=== PATIENT | female | born 1950 | race Caucasian/White ===

== ENCOUNTER 2018-10-09 09:20 | Inpatient (IN) | payer BC ==
[~2018-10-09] VITALS: Ht 152.4 cm; Wt 87.5 kg
[2018-10-09 10:22] LABS: Basophils # (auto) 0 uL; Basophils % (auto) 0.5 % (0.0-2.0); Eosinophils # (auto) 0.1 uL; Eosinophils % (auto) 1.8 % (0.0-7.0); Hematocrit 45.3 % (36.0-46.0); Lymphocytes # (auto) 1.3 uL; Lymphocytes % (auto) 16.9 % (10.0-50.0); Mean Corpuscular Hemoglobin 29.3 pg (28.0-32.0); Mean Corpuscular Volume 88.9 fL (80.0-100.0); Monocytes # (auto) 0.7 uL; Neutrophils # (auto) 5.5 uL; Neutrophils % (auto) 71.8 % (37.0-80.0); Nucleated Red Blood Cells % 0.1 %; Platelet Count (auto) 248 10^3/uL (140-450); Red Cell Distribution Width 13.7 % (11.8-14.3); White Blood Cell 7.7 10^3/uL (4.4-10.8)
[2018-10-09 10:42] LABS: Albumin 3.7 g/dL (3.4-5.0); Anion Gap 15 (5-15); Blood Urea Nitrogen 22 mg/dL (7-18); Calcium 9.6 mg/dL (8.5-10.1); Carbon Dioxide 16 mmol/L (21-32); Chloride 108 mmol/L (98-107); Glucose 97 mg/dL (74-106); Potassium 3.9 mmol/L (3.5-5.1); Sodium 139 mmol/L (136-145)
[2018-10-09 10:49] LABS: Alanine Aminotransferase 12 U/L (13-56); Alkaline Phosphatase 87 U/L (45-117); Aspartate Aminotransferase 15 U/L (15-37); BUN/Creatinine Ratio 13.3; Bilirubin, Total 0.6 mg/dL (0.2-1.0); GFR African American 40 mL/min; GFR Non-African American 33 mL/min; Total Protein 7.7 g/dL (6.4-8.2)
[2018-10-09] MEDS ORDERED: NITROGLYCERIN 0.4 MG SL TAB SL PRN (13:30)
[2018-10-09] MEDS ORDERED: MORPHINE SULF INJ 2 MG/ML SYRINGE 1ML IV PRN (13:30)
[2018-10-09] MEDS ORDERED: cefTRIAXone 1GM/50ML D5W 50 ML IV ONE (13:45)
[2018-10-09] MEDS: SODIUM CHLORIDE 0.9% 1,000 ML IV SCH (14:15)
[2018-10-09 14:39] LABS: Urine Bacteria FEW /hpf (None Seen); Urine Blood 1+ /uL (Negative); Urine Mucus FEW (None Seen); Urine Specific Gravity 1.029 (1.001-1.035); Urine WBC 14 /hpf (0 - 5)
[2018-10-09 14:53] LABS: Amphetamine Screen, Urine NEGATIVE (NEGATIVE); Barbiturate Scree,Urine NEGATIVE (NEGATIVE); Benzodiazephine Screen, Urine NEGATIVE (NEGATIVE); Cannabinoid Screen, Urine POSITIVE (NEGATIVE); Cocaine Screen, Urine NEGATIVE (NEGATIVE); Opiate Scree,Urine NEGATIVE (NEGATIVE); Phencyclidine Screen, Urine NEGATIVE (NEGATIVE)
[2018-10-09] MEDS ORDERED: SIMV-13 PO (17:03)
[2018-10-09] MEDS ORDERED: TRAZ50TA2 PO (17:10)
[2018-10-09] MEDS ORDERED: CHOL100055 PO (17:10)
[2018-10-09] MEDS ORDERED: LEVO100T8 PO (17:10)
[2018-10-09] MEDS ORDERED: SERT50TA PO (17:10)
[2018-10-09 19:49] LABS: Anion Gap 12 (5-15); BUN/Creatinine Ratio 17.2; Blood Urea Nitrogen 21 mg/dL (7-18); Calcium 9.1 mg/dL (8.5-10.1); Carbon Dioxide 19 mmol/L (21-32); Chloride 109 mmol/L (98-107); GFR African American 56 mL/min; GFR Non-African American 46 mL/min; Glucose 92 mg/dL (74-106); Potassium 3.6 mmol/L (3.5-5.1); Sodium 140 mmol/L (136-145)
--- NOTE | 2018-10-09 21:16 | NUR ---
Telemetry admit from ER MARYJOKAMILA admitted to Telemetry unit after SBAR received. Patient oriented to Myron Peña, primary RN, unit, room, bed, and unit policies regarding patient care and visiting hours. Patient is alert and oriented x 2. She states that she does not know why she was sent to the hospital. Has no complaints at the moment. Patient now on continuous telemetry monitoring, tele box # 73 and telemetry reading on arrival to unit is SR 55. Patient has been weighed by bedscale and encouraged to call if they need something. All questions and concerns addressed, patient verbalized understanding. Sitter is present in room.
[2018-10-09 21:20] VITALS: BP 139/72
[2018-10-09 23:10] LABS: Protein, Urine 56.2 mg/dL (0.0-11.9)
--- NOTE | 2018-10-09 23:33 | NUR ---
ADMISSION Admission information obtained from madi Payne [phone]
[2018-10-10 00:16] VITALS: BP 139/72
[2018-10-10] MEDS ORDERED: TRAZ50TA2 PO (00:36)
[2018-10-10] MEDS ORDERED: SIMV-13 PO (00:36)
[2018-10-10] MEDS ORDERED: MULTCAP45 PO (00:36)
[2018-10-10] MEDS ORDERED: CEPH500C PO (00:36)
[2018-10-10] MEDS ORDERED: CHOL20007 PO (00:36)
[2018-10-10] MEDS ORDERED: SPECTAB8 PO (00:36)
[2018-10-10] MEDS ORDERED: BIOT10CA PO (00:36)
[2018-10-10] MEDS: SODIUM CHLORIDE 0.9% 1,000 ML IV SCH ×2 (03:01→17:54)
[2018-10-10 05:00] VITALS: BP 147/73
[2018-10-10 06:07] LABS: Basophils # (auto) 0 uL; Basophils % (auto) 0.5 % (0.0-2.0); Eosinophils # (auto) 0.3 uL; Eosinophils % (auto) 4.5 % (0.0-7.0); Hemoglobin 14.5 g/dL (12.2-16.2); Lymphocytes # (auto) 1.5 uL; Lymphocytes % (auto) 22.2 % (10.0-50.0); Mean Corpuscular Hgb Conc. 32.9 g/dL (32.0-36.0); Mean Corpuscular Volume 88.1 fL (80.0-100.0); Monocytes # (auto) 0.7 uL; Monocytes % (auto) 9.9 % (0.0-12.0); Neutrophils # (auto) 4.2 uL; Neutrophils % (auto) 62.9 % (37.0-80.0); Nucleated Red Blood Cells % 0.1 %; Platelet Count (auto) 218 10^3/uL (140-450); Red Blood Cells 4.99 10^6/uL (4.0-5.20); Red Cell Distribution Width 13.8 % (11.8-14.3); White Blood Cell 6.7 10^3/uL (4.4-10.8)
[2018-10-10 06:20] LABS: Calcium 8.8 mg/dL (8.5-10.1); Potassium 3.7 mmol/L (3.5-5.1)
[2018-10-10 08:00] VITALS: BP 119/69
[2018-10-10 08:30] VITALS: BP 119/69
[2018-10-10] MEDS: cefTRIAXone 1GM/50ML D5W 50 ML IV SCH (09:17)
[2018-10-10] MEDS ORDERED: LEVOTHYROXINE SODIUM 100 MCG TAB PO ONE (11:15)
--- NOTE | 2018-10-10 12:18 | NUR ---
Estimated needs based on AJBW 56.8 kg-geriatric needs/wt maintenance factors 8928-5864 kcal (25-27 kcal/kg) 57-68 g protein (1.0-1.2 g/kg) Addendum: 10/10/18 at [address] Amended: Links added.
[2018-10-10 15:57] VITALS: BP 141/89
--- NOTE | 2018-10-10 19:20 | NUR ---
Opening Shift Note Assumed care of patient. Patient was asleep upon entering the room but arousable. Sitter present at bedside. No S/S of distress/SOB or pain. Instructed on POC and to call for assist PRN, will continue to monitor for changes Q1hr and PRN.
[2018-10-10 22:00] VITALS: BP 162/67
[2018-10-11 04:14] VITALS: BP 156/63
--- NOTE | 2018-10-11 04:58 | NUR ---
HOSPITALIST PAGED Patient reports having severe lower back pain. She states that her pain is 8/10. Hospitalist has been paged for PRN pain medication.
[2018-10-11] MEDS: LEVOTHYROXINE SODIUM 100 MCG TAB PO SCH (06:20)
[2018-10-11 06:35] LABS: Basophils # (auto) 0 uL; Basophils % (auto) 0.6 % (0.0-2.0); Eosinophils # (auto) 0.3 uL; Eosinophils % (auto) 5.4 % (0.0-7.0); Hematocrit 42.9 % (36.0-46.0); Hemoglobin 14.3 g/dL (12.2-16.2); Lymphocytes # (auto) 1.2 uL; Lymphocytes % (auto) 20.9 % (10.0-50.0); Mean Corpuscular Hemoglobin 29.4 pg (28.0-32.0); Mean Corpuscular Hgb Conc. 33.3 g/dL (32.0-36.0); Mean Corpuscular Volume 88.1 fL (80.0-100.0); Monocytes # (auto) 0.5 uL; Monocytes % (auto) 9.4 % (0.0-12.0); Neutrophils # (auto) 3.7 uL; Neutrophils % (auto) 63.7 % (37.0-80.0); Nucleated Red Blood Cells % 0.1 %; Platelet Count (auto) 197 10^3/uL (140-450); Red Blood Cells 4.87 10^6/uL (4.0-5.20); Red Cell Distribution Width 13.7 % (11.8-14.3); White Blood Cell 5.9 10^3/uL (4.4-10.8)
--- NOTE | 2018-10-11 06:45 | NUR ---
HOSPITALIST PAGE RETURNED Discussed patient's pain with Hospitalist Dillon. Order for [place] 5 Q4HR has been read back and verified.
[2018-10-11 06:53] LABS: BUN/Creatinine Ratio 16.9; Calcium 8.4 mg/dL (8.5-10.1); Potassium 3.5 mmol/L (3.5-5.1)
--- NOTE | 2018-10-11 07:15 | NUR ---
CLOSING NOTE Care has been endorsed to day shift RN.
[2018-10-11] MEDS: cefTRIAXone 1GM/50ML D5W 50 ML IV SCH (09:49)
[2018-10-11] MEDS: HYDROcodone-ACET 5/325MG TAB PO PRN ×2 (09:50→20:48)
[2018-10-11] MEDS ORDERED: LORazepam 0.5 MG TAB PO ONE (12:00)
[2018-10-11] MEDS: SODIUM CHLORIDE 0.9% 1,000 ML IV SCH (12:17)
[2018-10-11 18:00] VITALS: BP 147/73
[2018-10-11] MEDS ORDERED: LORazepam 2MG/ML-1ML VIAL IV PRN (19:45)
[2018-10-11] MEDS: LORazepam 2MG/ML-1ML VIAL IV PRN (20:48)
[2018-10-11] MEDS ORDERED: SODIUM BICARBONATE 650 MG TAB PO SCH (22:15)
[2018-10-12] MEDS: SODIUM CHLORIDE 0.9% 1,000 ML IV SCH ×2 (01:20→16:16)
[2018-10-12] MEDS: LORazepam 2MG/ML-1ML VIAL IV PRN ×2 (03:13→22:49)
[2018-10-12 05:40] VITALS: BP 145/77
[2018-10-12] MEDS: LEVOTHYROXINE SODIUM 100 MCG TAB PO SCH (06:15)
--- NOTE | 2018-10-12 06:16 | NUR ---
Patient took Levothyroxine medication and spat it out. Medication wasted. Sitter at bedside, will continue to monitor.
[2018-10-12 06:23] LABS: Calcium 8.7 mg/dL (8.5-10.1); Potassium 3.6 mmol/L (3.5-5.1)
[2018-10-12 06:27] LABS: BUN/Creatinine Ratio 11.9
[2018-10-12 09:00] VITALS: BP 171/79
[2018-10-12 10:39] VITALS: BP 130/71
[2018-10-12] MEDS: cefTRIAXone 1GM/50ML D5W 50 ML IV SCH (10:57)
--- NOTE | 2018-10-12 12:30 | NUR ---
EEG COMPLETED AT BEDSIDE. CAMILA PRADO.
[2018-10-12 13:00] VITALS: BP 170/78
[2018-10-12] MEDS ORDERED: THIAMINE 100mg/ml INJ (200mg/2ml VIAL) IV ONE (13:15)
--- NOTE | 2018-10-12 15:15 | NUR ---
UNABLE TO COMPLETE THE MRI SPOKE WITH THE RELAY SHOP SUPERVISOR. AFTER MULTIPLE ATTEMPTS TO SCAN THE PATIENT THEY HAD TO ABORT THE MRI OF THE HEAD. THE PATIENT WAS CALM AND SLEEP BEFORE EACH ATTEMPT TO SCAN, BUT THEN THE PATIENT WOULD BEGIN SCREAMING AND FLAILING WHILE IN THE MRI TUBE. THE LAST ATTEMPT TO SCAN THE PATIENT BEGAN TO VOMIT AND PRESENTING AN ASPIRATION RISK DUE TO THE HEAD CAGE NEEDED FOR THE SCAN. THE TECH RECOMMENDS THAT THE PATIENT HAS REPEAT CT SCANS, WHICH ARE SHORTER IN DURATION VERSUS THE MRI OF THE HEAD. WILL NOTIFY DR. GOODWIN AND CONTINUE TO MONITOR. OF NOW, THE PATIENT IS RESTING IN HER ROOM AND THERE ARE NO SIGNS OR DISTRESS. WILL CONTINUE TO MONITOR.
[2018-10-12 17:00] VITALS: BP 106/71
--- NOTE | 2018-10-12 18:25 | NUR ---
assessment Patient is a 68 year old female who just cries and does not answer my questions. Patients friend is at bedside and informed me patient lives with her friend Kerry for the past 2 years. Patient has been independent prior to admission. Patients current mental status is new onset. I will try to find patients brother who is in [place] and also call patients friend Kerry. Addendum: 10/12/18 at 1828 by Stephani FRANCO Amended: Links added.
[2018-10-12] MEDS: Ensure Enlive Strawberry 8oz Bottle PO SCH (18:37)
--- NOTE | 2018-10-12 19:30 | NUR ---
Opening Shift Note Assumed care of patient, awake and disoriented; oriented x1 to self. No S/S of distress/SOB or pain. Sitter in room. This RN will continue to monitor for changes Q1hr and PRN.
[2018-10-12 20:29] VITALS: BP 140/71
--- NOTE | 2018-10-12 22:49 | NUR ---
Ativan 0.5mg IVP given as pt aggitated; pulling at hospital gown and whining/fretting. Easily distracted and soothed but for short time only, so ativan given.
[2018-10-13 05:00] VITALS: BP 146/73
[2018-10-13] MEDS: LEVOTHYROXINE SODIUM 100 MCG TAB PO SCH (06:00)
--- NOTE | 2018-10-13 06:01 | NUR ---
Pt spat out synthroid, but swallowed small bite of apple sauce x2.
[2018-10-13] MEDS: SODIUM CHLORIDE 0.9% 1,000 ML IV SCH ×2 (06:31→17:41)
[2018-10-13] MEDS: Ensure Enlive Strawberry 8oz Bottle PO SCH ×3 (08:00→17:41)
[2018-10-13 09:00] VITALS: BP_SYST 118; BP_SYST 134; BP_DIAS 66; BP_DIAS 89
[2018-10-13] MEDS: THIAMINE 100mg/ml INJ (200mg/2ml VIAL) IV SCH (09:54)
[2018-10-13] MEDS: cefTRIAXone 1GM/50ML D5W 50 ML IV SCH (09:54)
[2018-10-13] MEDS: LORazepam 2MG/ML-1ML VIAL IV PRN (09:55)
[2018-10-13] MEDS ORDERED: HALOPERIDOL LACTATE 5 MG/ML INJ VIAL IM ONE (12:30)
[2018-10-13 13:00] VITALS: BP 120/60
--- NOTE | 2018-10-13 14:03 | NUR ---
Per patients nursebrent P.T. for today Addendum: 10/13/18 at 1403 by Afia Bojorquez PT Amended: Links added.
--- NOTE | 2018-10-13 14:19 | NUR ---
1 TIME DOSE OF HALDOL THE PHYSICIAN, DR. CONLEY, ORDERED A ONE TIME DOSE OF HALDOL 5MG IM. THE PATIENT DOES NOT HAVE THE ABILITY TO SWALLOW PILLS AND MUST RECEIVE THE MEDICATION THROUGH ANOTHER ROUTE. SPOKE WITH THE PHYSICIAN REGARDING THE NEED FOR A PRN BECAUSE A ONE TIME DOSE IS CONSIDERED A RESTRAINT. THE PHYSICIAN STATED THAT THE MEDICATION IS NOT CONSIDERED A RESTRAINT BECAUSE OF THE ROUTE OF ADMINISTRATION. THE MEDICATION IS BEING USED NOT TO RESTRAIN, BUT BECAUSE SHE CANNOT SWALLOW HER PILLS. WILL CARRYOUT AND CONTINUE TO MONITOR.
--- NOTE | 2018-10-13 19:35 | NUR ---
Opening Shift Note Received report from day shift RN. Assumed care of patient. Patient laying in bed A&O x1. Patient orientated to self. Patient only responds with simple yes or no answers when being asked questions. No S/S of distress/SOB noted and patient denies pain at this time. Patient becomes easily upset when being touched for assessment. Reassured and comforted patient. Patient pulled off tele monitor but was educated on the importance and need of tele monitor. Patient stated understanding and agreed to leave monitors on. Sitter at bedside for safety. Bed in lowest position, locked, with side rails up x2. Call light left within reach. Will continue to monitor for changes Q1hr and PRN
[2018-10-13 21:30] VITALS: BP 152/91
[2018-10-14 05:19] VITALS: BP 130/54
[2018-10-14] MEDS: SODIUM CHLORIDE 0.9% 1,000 ML IV SCH ×2 (06:26→21:34)
[2018-10-14] MEDS: LEVOTHYROXINE SODIUM 100 MCG TAB PO SCH (06:26)
[2018-10-14] MEDS: Ensure Enlive Strawberry 8oz Bottle PO SCH ×3 (08:00→18:00)
[2018-10-14 08:33] VITALS: BP 123/79
[2018-10-14] MEDS: cefTRIAXone 1GM/50ML D5W 50 ML IV SCH (09:19)
[2018-10-14] MEDS: risperiDONE 1 MG TAB PO SCH (10:00)
[2018-10-14] MEDS: THIAMINE 100mg/ml INJ (200mg/2ml VIAL) IV SCH (10:42)
[2018-10-14 12:53] VITALS: BP 138/68
[2018-10-14 12:55] VITALS: BP 124/59
[2018-10-14 17:01] VITALS: BP 127/66
[2018-10-14 22:10] VITALS: BP 125/76
[2018-10-15 05:07] VITALS: BP 130/70
[2018-10-15] MEDS: LEVOTHYROXINE SODIUM 100 MCG TAB PO SCH (06:54)
[2018-10-15 08:00] VITALS: BP 124/75
[2018-10-15 08:33] VITALS: BP 124/75
[2018-10-15] MEDS: cefTRIAXone 1GM/50ML D5W 50 ML IV SCH (09:00)
[2018-10-15] MEDS: Ensure Enlive Strawberry 8oz Bottle PO SCH ×3 (09:00→17:47)
--- NOTE | 2018-10-15 09:44 | NUR ---
PT PT PERFORMED PASSIVE RANGE MOTION EXERCISES, WHICH PATIENT TOLERATED WITHOUT CRYING. WILL CONTINUE TO MONITOR.
[2018-10-15] MEDS: risperiDONE 1 MG TAB PO SCH (10:00)
[2018-10-15] MEDS: SODIUM CHLORIDE 0.9% 1,000 ML IV SCH ×2 (12:40→23:08)
[2018-10-15] MEDS: THIAMINE 100mg/ml INJ (200mg/2ml VIAL) IV SCH (12:40)
[2018-10-15 13:00] VITALS: BP 140/77
[2018-10-15 17:00] VITALS: BP 154/81
--- NOTE | 2018-10-15 19:30 | NUR ---
Opening Shift Note Assumed care of patient, sleeping soundly with linens pulled up under chin. No S/S of distress/SOB or pain. Sitter in room. This RN will continue to monitor for changes Q1hr and PRN.
[2018-10-15 22:00] VITALS: BP 168/81
[2018-10-15] MEDS: CIPROFLOXACIN HYDROCHLORIDE 250 MG TAB PO SCH (22:00)
--- NOTE | 2018-10-15 22:45 | NUR ---
This RN attempted to give pt crushed abx in apple sauce after getting response from pt and pt stating "yes" to question if she would like apple sauce. Pt began whimpering before apple sauce given. This RN gave small tsp of apple sauce with small amount of crushed med. Pt, same as last week, took it into her mouth then resumed whimpering/crying and holding mouth partially open. She gagged sl x3 then swallowed. No further attempts made to keep pt from aspirating.
--- NOTE | 2018-10-15 23:25 | NUR ---
Dr. Blanco here at pt's bedside; asked if cause for ALOC had yet been determined. Informed MD that woman pt lives with stated pt has vaped and they found used cartridges. Dr. Blanco stated to tell Kerry, the house furnace mechanic, to bring in the cartridges and to get the number for the lawn service worker from ER to get the cartridges tested for possible contaminants/chemicals other than the marijuana/cannabis.
[2018-10-16 05:00] VITALS: BP 146/77
[2018-10-16] MEDS: LEVOTHYROXINE SODIUM 100 MCG TAB PO SCH (06:51)
[2018-10-16 07:47] LABS: Basophils # (auto) 0 uL; Basophils % (auto) 0.4 % (0.0-2.0); Eosinophils # (auto) 0.2 uL; Hematocrit 48.6 % (36.0-46.0); Hemoglobin 16.5 g/dL (12.2-16.2); Lymphocytes % (auto) 13.4 % (10.0-50.0); Mean Corpuscular Hemoglobin 29.5 pg (28.0-32.0); Mean Corpuscular Volume 86.9 fL (80.0-100.0); Monocytes # (auto) 0.6 uL; Monocytes % (auto) 8.4 % (0.0-12.0); Neutrophils # (auto) 5.4 uL; Neutrophils % (auto) 74.8 % (37.0-80.0); Nucleated Red Blood Cells % 0.1 %; Platelet Count (auto) 233 10^3/uL (140-450); Red Blood Cells 5.59 10^6/uL (4.0-5.20); Red Cell Distribution Width 13.5 % (11.8-14.3); White Blood Cell 7.2 10^3/uL (4.4-10.8)
[2018-10-16 07:59] LABS: BUN/Creatinine Ratio 12.2; Calcium 9.1 mg/dL (8.5-10.1); Potassium 3.6 mmol/L (3.5-5.1)
[2018-10-16 08:02] LABS: Bilirubin, Total 0.6 mg/dL (0.2-1.0); Total Protein 6.7 g/dL (6.4-8.2)
[2018-10-16 09:00] VITALS: BP 149/86
--- NOTE | 2018-10-16 10:43 | NUR ---
Pt walked 20 ft with physical therapy. LITHARGE SUPERVISOR reports pt had large soft brown bm and was given a bed bath with full linen change.
[2018-10-16] MEDS: Ensure Enlive Strawberry 8oz Bottle PO SCH ×2 (11:03→15:25)
[2018-10-16] MEDS: risperiDONE 1 MG TAB PO SCH (11:04)
[2018-10-16] MEDS: THIAMINE 100mg/ml INJ (200mg/2ml VIAL) IV SCH (11:04)
[2018-10-16] MEDS: CIPROFLOXACIN HYDROCHLORIDE 250 MG TAB PO SCH ×2 (11:04→23:03)
--- NOTE | 2018-10-16 11:13 | NUR ---
SPOKE WITH LYN GARCIA AND REQUESTED SHE BRING IN CARTRIDGES THAT THE PATIENT HAS MARIJUANA IN PER DR ZAPIEN REQUEST. LYN REPORTS SHE WILL BRING THEM IN THIS AFTER NOON.
[2018-10-16 12:54] VITALS: BP 116/79
--- NOTE | 2018-10-16 16:23 | NUR ---
re-assessment I spoke with patients roommate Kerry [phone]. Per Kerry patient has lived with her for the past 2 years. Per Kerry patient never wanted to change her insurance to local because she did not want to change PCP. Patients PCP is Dr Eleonora Carranza at [facility]. Per Kerry she didn't know patient was smoking THC until her admission. Kerry gave me patients next of kin Joanne Fitzpatrick sister [phone]. Per Joanne patient has been smoking marijuana since she was in her 50's. No other drug or ETOH addictions. I informed Joanne patient has a consult for SNF placement. Joanne agrees to SNF. I informed Joanne the placement may be in [place] where her insurance coverage is at. Per Joanne she agrees to where ever the insurance is contracted. Joanne verbalized understanding and agreed to discharge plan to SNF> Addendum: 10/16/18 at 1642 by Stephani FRANCO Amended: Links added.
[2018-10-16 17:00] VITALS: BP 118/76
--- NOTE | 2018-10-16 19:20 | NUR ---
Opening Shift Note Assumed care of patient, resting quietly, eyes closed. No S/S of distress/SOB or pain. Sitter in room. This RN will continue to monitor for changes Q1hr and PRN. Bed in low position. HOB in semi-Oliver's position. Call light within pt's reach.
[2018-10-16 21:44] VITALS: BP 108/67
[2018-10-17 05:54] VITALS: BP 105/75
[2018-10-17] MEDS: LEVOTHYROXINE SODIUM 100 MCG TAB PO SCH (08:04)
[2018-10-17 08:40] VITALS: BP 128/60
[2018-10-17] MEDS: risperiDONE 1 MG TAB PO SCH (10:00)
[2018-10-17] MEDS: THIAMINE 100mg/ml INJ (200mg/2ml VIAL) IV SCH (10:00)
[2018-10-17] MEDS: Ensure Enlive Strawberry 8oz Bottle PO SCH ×3 (12:00→18:50)
[2018-10-17 12:45] VITALS: BP 124/78
--- NOTE | 2018-10-17 14:26 | NUR ---
Nutrition Follow-up Notes Wt.: 86.5 kg Pt was sleeping not very alert with no family by beside but TALENT MANAGEMENT SPECIALIST. per TALENT MANAGEMENT SPECIALIST pt is not eating well and has poor PO as she is sleepy. per records pt with enceph. pt is currently on 2 gm na diet with ensure Enlive 1 carton tid with inadequate PO of < 25% x 4 per RN doc Estimated needs based on AJBW 56.8 kg-geriatric needs/wt maintenance factors: 6873-8369 kcal (25-27 kcal/kg), 57-68 g protein (1.0-1.2 g/kg) Labs: ALB 3.0 L. rest lab wnl for today Skin: Stef scale 19, low risk skin intact per RN doc GI: Pt had 1 BM 9/3 per air cargo specialist supervisor. PES: Altered nutrition related lab values r/t acute/chronic medical condition aeb elev BUN A1C, hypercapnia, hyperglycemia, Obesity class II r/t current chronic medical condition aeb pt. sedentary and measured BMI 39.1 kg/m2. Will continue to monitor PO intake, skin status, pertinent labs and weight trend. F/u in 2-3 days. Rec.: 1.) 1) Continue 2 gm Na diet ([id number]) as tolerated. 2) Consider alternate nutrition support if tp continues to have poor PO. If EN is choice of route consider Jevity 1.2 @ 55 ml.hr per MD approval. 3) continue assistance with meals. 4) continue current plan of care
[2018-10-17 16:00] VITALS: BP 118/75
--- NOTE | 2018-10-17 16:03 | NUR ---
I spoke with Dr. Velasquez regarding the plan of care for this patient-I let him know that the medical insurance coding specialist from [facility] may be calling him to discuss the plan of care. I also called [facility] Salon Receptionist Taya [phone] and left her a message asking to have her director of extension work Dr. Velasquez to discuss the plan of care.
--- NOTE | 2018-10-17 16:30 | NUR ---
FAILED TO GET NG TUBE INSERTED MADE 2 ATTEMPTS TO INSERT THE NG TUBE. THE PATIENT FOUGHT THE INSERTION AND IT CONTINUED TO COIL IN HER MOUTH. SHE DID STATE "I DON'T WANT IT" TO THE CHARGE. WILL NOTIFY MD AND CONTINUE TO MONITOR.
[2018-10-17] MEDS ORDERED: LORazepam 2MG/ML-1ML VIAL IV PRN (16:45)
[2018-10-17] MEDS: D5W/SOD CHL 0.45%/KCL 20MEQ 1,000 ML IV SCH (17:51)
--- NOTE | 2018-10-17 19:25 | NUR ---
Opening Shift Note Received report from sylvie Ponce RN. Assumed care of patient, resting quietly, eyes closed. No S/S of distress/SOB or pain. Sitter at bedside. Will continue to monitor for changes Q1hr and PRN. Bed in low position. HOB in semi-Oliver's position. Call light within pt's reach.
--- NOTE | 2018-10-17 21:00 | NUR ---
IV removal IV to right wrist infiltrated. IV DC'd with sterile technique, catheter fully intact. Pressure dressing applied to site. Patient tolerated procedure well.
--- NOTE | 2018-10-17 21:10 | NUR ---
IV insertion IV access obtained, via clean sterile technique by inserting 22 gauge catheter at left forearm after first attempt. IV secured properly. No trauma to site. Patient tolerated procedure well.
[2018-10-17 22:00] VITALS: BP 124/75
[2018-10-18] MEDS: D5W/SOD CHL 0.45%/KCL 20MEQ 1,000 ML IV SCH ×2 (02:20→12:36)
--- NOTE | 2018-10-18 04:00 | NUR ---
ROUNDS ASSISTS IN REPOSITIONING PATIENT TO SIDE. PATIENT CRIES WITH EVERY MOVEMENT BUT EYES ARE CLOSED. NON-VERBAL AT THIS TIME AND CONFUSED.
[2018-10-18 05:00] VITALS: BP_SYST 133; BP_SYST 135; BP_DIAS 65; BP_DIAS 86
--- NOTE | 2018-10-18 05:38 | NUR ---
PATIENT RESISTS NG TUBE PLACEMENT. SOON THE TIP OF THE NG TUBE TOUCHES PATIENT'S NOSE, PATIENT CRIES, SHAKES HER HEAD AND UNABLE TO SWALLOW. ATTEMPTED TWICE BUT PATIENT RESISTS.
[2018-10-18] MEDS: LEVOTHYROXINE SODIUM 100 MCG TAB PO SCH (06:36)
[2018-10-18] MEDS: Ensure Enlive Strawberry 8oz Bottle PO SCH ×3 (08:00→17:33)
--- NOTE | 2018-10-18 08:00 | NUR ---
Received pt resting in bed, call light within reach, sitter at bed side, santoyo draining to gravity, pt turned and reposition, will continue to monitor pt.
[2018-10-18 08:38] VITALS: BP 124/69
--- NOTE | 2018-10-18 08:38 | NUR ---
DR. GOODWIN / NEURO AT BED SIDE TO SEE PT.
[2018-10-18] MEDS: risperiDONE 1 MG TAB PO SCH ×2 (09:44→09:52)
[2018-10-18] MEDS: THIAMINE 100mg/ml INJ (200mg/2ml VIAL) IV SCH (09:44)
--- NOTE | 2018-10-18 10:30 | NUR ---
PHYSICAL THERAPY Pt ambulated with physical therapy and walker up to 90 feet per physical therapy, pt sitting on chair for lunch, call light within reach, and sitter at bed side.
--- NOTE | 2018-10-18 11:03 | NUR ---
Pt's friend at bed side, friend asked if she brought what pt uses for vaping, pt's friend stated that pt has been using THC and that she has brought it twice and the nurses have told her to take it back, friend informed that doctor Francis / mike wants nurses to call poison control and inform what the pt is taking and the side effects, as per pt's friend Luz if the doctor wants her to bring it back in for the doctor to call her and ask for it.
[2018-10-18] MEDS ORDERED: THIAMINE 100mg/ml INJ (200mg/2ml VIAL) IV ONE (12:00)
--- NOTE | 2018-10-18 12:02 | NUR ---
Dr. Velasquez at bed side to see pt, doctor informed that pt's friend wants the doctor to call her and request the vial of what the pt was using to vape, doctor also informed that pt is not swallowing and that she needs to be suction.
--- NOTE | 2018-10-18 12:05 | NUR ---
Called poison control center [phone] Velasquez's request to see if the vial that pt was using for vaping can be analyzed, as per poison control they can not analyze the via because they are not a laboratory, doctor informed. As per Dr. Velasquez there is no need for the pt's friend Luz to bring the vial again.
--- NOTE | 2018-10-18 12:30 | NUR ---
NGT placed to lt nare, secured at 55 cm, NGt clamped and will order CXR for placement.
[2018-10-18] MEDS: Jevity 1.2 Cal/Fiber 1 Liter GT SCH ×2 (12:35→14:42)
--- NOTE | 2018-10-18 12:50 | NUR ---
Tap water enema done, awaiting for BM. Sitter at bed side.
[2018-10-18 13:00] VITALS: BP 121/72
--- NOTE | 2018-10-18 16:16 | NUR ---
Vianney, RN mid line nurse at bed side, mid line nurse assessed pt's IV, Lt forearm 22 G. flushing good, as per midline nurse IV flushing good, cancel Mid line insert order and if needed in the future re-order but as of now no mid line is not needed.
--- NOTE | 2018-10-18 16:19 | NUR ---
SWALLOW EVALUATED. PAT HAS OWN TEETH. PATIENT SOMEWHAT ALOC. GREAT DIFFICULTY INITIATING SWALLOW. GURGLING, WET QUALITY TO SWALLOW. RECOMMEND NPO. CONTINUE ALTERNATIVE MEANS OF NUTRITION. NURSING NOTIFIED.
[2018-10-18 16:27] VITALS: BP 128/72
--- NOTE | 2018-10-18 18:25 | NUR ---
Received a call from the imaging center to report brain MRI results, paged Dr. Blanco to inform brain MRI results, awaiting call back.
--- NOTE | 2018-10-18 19:20 | NUR ---
Opening Shift Note Received report from La Alvarez care of patient, awake and alert, talking and smiling. NG Tube in place to left nare, on continuous tube feeding running at 30ml/hr. No S/S of distress/SOB or pain. Instructed on POC and to call for assist PRN, will continue to monitor for changes Q1hr and PRN. Bed placed in lowest position, bed alarm turned on, and call light within reach. Sitter at bedside
--- NOTE | 2018-10-18 19:23 | NUR ---
Dr. Blanco / neuro at unit, doctor informed of brain MRI results.
[2018-10-18 22:00] VITALS: BP 146/74
[2018-10-18] MEDS: ATORVASTATIN 20 MG TAB PO SCH (22:13)
[2018-10-19] MEDS: D5W/SOD CHL 0.45%/KCL 20MEQ 1,000 ML IV SCH ×2 (03:59→12:05)
[2018-10-19 05:12] VITALS: BP 129/73
[2018-10-19] MEDS: LEVOTHYROXINE SODIUM 100 MCG TAB PO SCH (06:27)
--- NOTE | 2018-10-19 06:39 | NUR ---
ROUNDS PATIENT IS RESTING IN BED, NO SIGNS OF DISTRESS. PATIENT TALKS AND AND ANSWERS QUESTIONS AT TIMES BUT MOST TIMES IS ASLEEP. NG TUBE IN PLACE AT 55 CM IN THE LEFT NARE, 30ML/HR CONTINUOUS TUBE FEEDING.
--- NOTE | 2018-10-19 07:42 | NUR ---
OPENING NOTE Assumed care of patient from NOC RNJil. Patient awake and alert to self with no S/S of distress/SOB or pain. NG tube, left nares, intact/patent and infusing Jevity at 30ml/hr. Ansari catheter intact/patent and hung below bed. Sitter at bedside for patient's safety. Bed in lowest, locked position with side rails up x2. Fall precautions in place and call light within reach. Will continue to monitor for changes Q1hr and PRN.
[2018-10-19] MEDS: Ensure Enlive Strawberry 8oz Bottle PO SCH ×3 (08:00→18:00)
[2018-10-19 09:00] VITALS: BP 113/70
[2018-10-19 09:22] LABS: Basophils # (auto) 0 uL; Basophils % (auto) 0.5 % (0.0-2.0); Eosinophils # (auto) 0.4 uL; Eosinophils % (auto) 5.2 % (0.0-7.0); Hematocrit 44.7 % (36.0-46.0); Hemoglobin 14.9 g/dL (12.2-16.2); Lymphocytes # (auto) 1.4 uL; Lymphocytes % (auto) 20.7 % (10.0-50.0); Mean Corpuscular Hemoglobin 29.2 pg (28.0-32.0); Mean Corpuscular Hgb Conc. 33.3 g/dL (32.0-36.0); Mean Corpuscular Volume 87.8 fL (80.0-100.0); Monocytes # (auto) 0.7 uL; Monocytes % (auto) 10.5 % (0.0-12.0); Neutrophils # (auto) 4.3 uL; Neutrophils % (auto) 63.1 % (37.0-80.0); Nucleated Red Blood Cells % 0.1 %; Platelet Count (auto) 237 10^3/uL (140-450); Potassium 3.7 mmol/L (3.5-5.1); Red Blood Cells 5.08 10^6/uL (4.0-5.20); Red Cell Distribution Width 13.7 % (11.8-14.3); White Blood Cell 6.8 10^3/uL (4.4-10.8)
[2018-10-19 09:24] LABS: BUN/Creatinine Ratio 14.2
[2018-10-19 09:59] LABS: Cholesterol 196 mg/dL (< 200); Triglycerides 230 mg/dL (< 150)
[2018-10-19 10:01] LABS: HDL Cholesterol 25 mg/dL (40-59); LDL Cholesterol 134 mg/dL (< 100)
--- NOTE | 2018-10-19 10:31 | NUR ---
PT Per PT, Dilan, patient ambulated approximately 100ft with minimal assist. Patient is currently sitting in bedside chair. No S/S of distress noted. Sitter at bedside.
[2018-10-19] MEDS: risperiDONE 1 MG TAB PO SCH (11:45)
[2018-10-19] MEDS: THIAMINE 100mg/ml INJ (200mg/2ml VIAL) IV SCH (11:45)
[2018-10-19] MEDS: ASPirin 81 mg TAB PO SCH (11:45)
[2018-10-19 13:00] VITALS: BP 95/65
--- NOTE | 2018-10-19 14:28 | NUR ---
Nutrition Follow-up Notes Wt.: 89.5 kg as of yesterday Pt's sitting up on bedside chair, no signs of distress noted earlier however incoherent, no immediate family member at bedside except for sitter when rounded this morning. Pt failed swallow eval by ST yesterday, currently NPO with EN support of Jevity 1.2 Brian @ 30 ml/hr via NGT providing 864 kcal, 40 gms pro and 581 ml free water, tolerates feeding well, no residuals noted this morning, per nursing. Pt with inadequate EN support d/t low initiation rate delivery of concentrated formula aeb current EN infusion meets 78% to 62% of est caloric needs and 59% to 70% of est protein needs. Endorsed to RN re: RD's recommendation, per MD's approval. Estimated needs based on AJBW 56.8 kg-geriatric needs/wt maintenance factors: 3725-6469 kcal (25-27 kcal/kg), 57-68 g protein (1.0-1.2 g/kg) Labs: Gluc 116 H, Cr 1.06 H; Alb 3.0 L Skin: Stef scale 18, mod risk, skin intact per cane packer GI: Pt had 1 BM 10/16/18 per cane packer. PES: Altered nutrition related lab values r/t acute/chronic medical condition aeb elev BUN A1C, hypercapnia, hyperglycemia, Obesity class II r/t current chronic medical condition aeb pt. sedentary and measured BMI 39.1 kg/m2. Will continue to monitor NPO status, EN tolerance, skin status, pertinent labs and weight trend. F/u in 2 to 3 days. Rec.: 1.) If still NPO with EN support, consider gradual increase on feeding rate of Jevity 1.2 Brian to 55 ml/hr goal rate as tolerated when medically appropriate. 2.) If Albumin continues trending down, consider Prostat 1 pkt BID. 3.) Resume gradually to oral diet (2 gms Na diet ([id number]), per ST's diet texture recommendation) if medically appropriate. 4.) Refer to RD for further nutrition educ. and weight monitoring upon discharge. 5.) Continue current plan of care.
[2018-10-19 17:00] VITALS: BP 129/69
--- NOTE | 2018-10-19 18:23 | NUR ---
Discharge planning per consult for SNF placement. Referral faxed to the following SNF's in the patient's network of her insurance health plan: [facility] ([phone]), [facility] ([phone]), and [facility] ([phone]). Acceptance pending. Addendum: 10/19/18 at 1825 by CELINE BERNARDO Amended: Links added.
--- NOTE | 2018-10-19 19:15 | NUR ---
Opening Shift Note Received report from sylvie Headley RN. Assumed care of patient, awake and alert. No S/S of distress/SOB or pain. Sitter at bedside. Instructed on POC and to call for assist PRN, will continue to monitor for changes Q1hr and PRN. Bed placed in lowest position, bed alarm turned on and call light within reach. Reminded sitter to watch patient's NG tube closely.
--- NOTE | 2018-10-19 19:25 | NUR ---
PATIENT PULLED IV. DON STATED THAT SHE JUST TURNED AROUND AND PUT ON SOME GLOVES ON, BUT WHEN SHE CAME BACK, PATIENT'S NG TUBED IS ALREADY OUT.
--- NOTE | 2018-10-19 19:30 | NUR ---
CLOSING NOTE Endorsed care of patient to NOC Rosa. CAMILA
[2018-10-19 22:00] VITALS: BP 108/72
[2018-10-19] MEDS: ATORVASTATIN 20 MG TAB PO SCH (22:00)
--- NOTE | 2018-10-19 22:00 | NUR ---
PATIENT'S MED HELD D/T NO ACCESS, NG TUBE PULLED OUT BY PATIENT.
--- NOTE | 2018-10-19 22:20 | NUR ---
NG TUBE INSERTION NG TUBE INSERTED TO RIGHT NARE AT MARKER 55. PATIENT TOLERATED PROCEDURE WELL
--- NOTE | 2018-10-19 22:30 | NUR ---
CXR ORDERED PER PROTOCOL FOR NG TUBE PLACEMENT CONFIRMATION PRIOR TO CONNECTING TUBE FEEDING.
--- NOTE | 2018-10-19 22:45 | NUR ---
IV removal IV to left forearm infiltrated. IV DC'd with sterile technique, catheter fully intact. Pressure dressing applied to site. Patient tolerated procedure well.
--- NOTE | 2018-10-19 23:00 | NUR ---
IV insertion IV access obtained, via clean sterile technique by inserting 22 gauge catheter at right hand after first attempt. IV secured properly. No trauma to site. Patient tolerated procedure well.
--- NOTE | 2018-10-20 04:40 | NUR ---
HOSPITALIST GIVE AN ORDER TO USE NG TUBE.
[2018-10-20 05:00] VITALS: BP 110/70
[2018-10-20] MEDS: LEVOTHYROXINE SODIUM 100 MCG TAB PO SCH (06:16)
[2018-10-20] MEDS: D5W/SOD CHL 0.45%/KCL 20MEQ 1,000 ML IV SCH ×3 (06:57→21:05)
--- NOTE | 2018-10-20 07:34 | NUR ---
OPENING NOTE Assumed care of patient from NOC RNJil. Patient awake and alert to self with no S/S of distress/SOB or pain. NG tube, right nares, intact/patent and infusing Jevity at 30ml/hr. Ansari catheter intact/patent and hung below bed. Sitter at bedside for patient's safety. Bed in lowest, locked position with side rails up x2. Fall precautions in place and call light within reach. Will continue to monitor for changes Q1hr and PRN.
[2018-10-20] MEDS: Ensure Enlive Strawberry 8oz Bottle PO SCH ×3 (08:00→18:00)
[2018-10-20 09:00] VITALS: BP 145/71
[2018-10-20] MEDS: ASPirin 81 mg TAB PO SCH (10:30)
[2018-10-20] MEDS: risperiDONE 1 MG TAB PO SCH (10:30)
[2018-10-20] MEDS: THIAMINE 100mg/ml INJ (200mg/2ml VIAL) IV SCH (10:30)
--- NOTE | 2018-10-20 11:00 | NUR ---
FRIEND Patient's friend/roommate, Kerry, at bedside.
--- NOTE | 2018-10-20 11:23 | NUR ---
PT Patient ambulated with PT, moderate assistance needed. Patient currently sitting in bedside chair, sitter at bedside. No S/S of distress noted.
[2018-10-20] MEDS ORDERED: GADOPENTETATE DIMEGLUMINE (10MMOL/20 ML) VIAL IV ONE (13:59)
[2018-10-20] MEDS ORDERED: LORazepam 2MG/ML-1ML VIAL IV PRN (14:00)
[2018-10-20] MEDS ORDERED: D5W/SOD CHL 0.45%/KCL 20MEQ 1,000 ML IV SCH (14:00)
--- NOTE | 2018-10-20 14:32 | NUR ---
OFF UNIT Patient taken off unit via gurney for MRI. No S/S of distress noted.
[2018-10-20 18:05] VITALS: BP 145/71
[2018-10-20] MEDS: ATORVASTATIN 20 MG TAB PO SCH (21:04)
[2018-10-20] MEDS: Jevity 1.2 Cal/Fiber 1 Liter GT SCH (21:06)
[2018-10-20 22:00] VITALS: BP 120/64
[2018-10-21 05:00] VITALS: BP 126/64
[2018-10-21] MEDS: LEVOTHYROXINE SODIUM 100 MCG TAB PO SCH (06:06)
--- NOTE | 2018-10-21 07:30 | NUR ---
RECEIVED REPORT FROM NIGHT NURSE. PATIENT RESTING IN BED, NO DISTRESS NOTED. WILL CONTINUE TO MONITOR. SITTER AT BEDSIDE.
[2018-10-21 07:33] LABS: Potassium 4.4 mmol/L (3.5-5.1)
[2018-10-21 07:39] LABS: BUN/Creatinine Ratio 8.4; Calcium 9.4 mg/dL (8.5-10.1)
[2018-10-21] MEDS: Ensure Enlive Strawberry 8oz Bottle PO SCH ×3 (08:00→18:00)
[2018-10-21] MEDS: THIAMINE 100mg/ml INJ (200mg/2ml VIAL) IV SCH (09:32)
[2018-10-21] MEDS: risperiDONE 1 MG TAB PO SCH (09:32)
[2018-10-21] MEDS: ASPirin 81 mg TAB PO SCH (09:32)
--- NOTE | 2018-10-21 15:00 | NUR ---
NG TUBE NG TUBE SNEEZED OUT OF PATIENT'S NARE. DOCTOR LARA MADE AWARE. ORDERS TO PLACE NEW SWALLOW EVALUATION AND HOLD OFF ON INSERTING NEW NG TUBE UNTIL SWALLOW EVALUATION COMPLETED. WILL PLACE ORDERS AND CARRY OUT.
[2018-10-21] MEDS: D5W/SOD CHL 0.45%/KCL 20MEQ 1,000 ML IV SCH (15:50)
[2018-10-21] MEDS: ATORVASTATIN 20 MG TAB PO SCH (20:20)
[2018-10-21 22:00] VITALS: BP 127/82
[2018-10-22] MEDS: D5W/SOD CHL 0.45%/KCL 20MEQ 1,000 ML IV SCH ×2 (02:18→13:05)
[2018-10-22 05:00] VITALS: BP 122/71
[2018-10-22] MEDS: LEVOTHYROXINE SODIUM 100 MCG TAB PO SCH (06:09)
[2018-10-22 08:00] VITALS: BP 123/74
[2018-10-22] MEDS: Ensure Enlive Strawberry 8oz Bottle PO SCH ×3 (08:43→18:26)
--- NOTE | 2018-10-22 09:07 | NUR ---
CONSENT GIVEN FOR LUMBAR PUNCTURE CALLED THE PATIENT'S SISTER, MARCELINO HERNANDEZ, FOR CONSENT FOR THE LUMBAR PUNCTURE THAT WAS ORDERED BY DR. GOODWIN. I FIRST ASKED FOR THE PASSWORD, WHICH THE MARCELINO GAVE, "ERICKSON". THE SISTER GAVE HER CONSENT FOR LUMBAR PUNCTURE AFTER EDUCATION ON THE WHAT A LUMBAR PUNCTURE IS AND WHY IT WAS NECESSARY. I ANSWERED THE SISTER'S QUESTIONS AND SHE VERIFIED UNDERSTANDING. CAMILA ADAIR, THEN VERIFIED THE NAME, RELATIONSHIP OF MARCELINO TO THE PATIENT AND HER CONSENT FOR LUMBAR PUNCTURE. WILL REPORT CONSENT TO RADIOLOGY AND CAMILA MILLER.
[2018-10-22] MEDS: ASPirin 81 mg TAB PO SCH (10:15)
[2018-10-22] MEDS: THIAMINE 100mg/ml INJ (200mg/2ml VIAL) IV SCH (10:15)
[2018-10-22] MEDS: risperiDONE 1 MG TAB PO SCH (10:15)
--- NOTE | 2018-10-22 13:57 | NUR ---
Nutrition Follow-up Notes Wt.: 90.8 kg as of yesterday Pt's asleep, no immediate family member at bedside during rounds this morning. Pt's confused, pulled out her NGT, off from EN support and for swallow eval, per nursing. Noted pt's to start today on Mechanical Soft diet with active Tele Psych consult. Estimated needs based on AJBW 56.8 kg-geriatric needs/wt maintenance factors: 6289-3783 kcal (25-27 kcal/kg), 57-68 g protein (1.0-1.2 g/kg) Labs: No new labs today 10/21/18 pertinent labs wnl except for Cr 1.07 H, TSH 7.08 H; Alb 3.0 L Skin: Stef scale 18, mod risk, skin intact per media job titles GI: Pt had 1 BM 10/16/18 per media job titles. PES: Altered nutrition related lab values r/t acute/chronic medical condition aeb elev BUN A1C, hypercapnia, hyperglycemia, Obesity class II r/t current chronic medical condition aeb pt. sedentary and measured BMI 39.1 kg/m2. Will continue to monitor PO intake, skin status, pertinent labs and weight trend. F/u in 3 to 5 days. Rec.: 1.) Consider close supervision with meals. 2.) If Albumin continues trending down, consider Prostat 1 pkt BID. 3.) Refer to RD for further nutrition educ. and weight monitoring upon discharge. 5.) Continue current plan of care.
[2018-10-22] MEDS ORDERED: LIDOCAINE 2%HCL (LOCAL ANESTH.) INJ 20ML MDV ONE (14:18)
[2018-10-22 16:40] LABS: Protein, CSF 56.9 mg/dL (15-45)
[2018-10-22 16:51] VITALS: BP 120/79
--- NOTE | 2018-10-22 17:07 | NUR ---
RE-EVALUATION OF SWALLOW. PATIENT ABLE TO FOLLOW COMMANDS TODAY. TOLERATED TRIAL OF PUREE AND OF MECHANICAL SOFT WITH THIN LIQUIDS. NURSING NOTIFIED.
--- NOTE | 2018-10-22 19:30 | NUR ---
Opening Shift Note Assumed care of patient, awake and alert to self. Sitter at bedside. Delayed when asking questions and does not always answer. Laughs at innapropriate times. IV patent and infusing per orders. Refuses to get up and try and ambulate. When turning her she cries and its difficult to get her to assist at times. No S/S of distress/SOB or pain. Instructed on POC and to call for assist PRN, will continue to monitor for changes Q1hr and PRN.
[2018-10-22 21:05] LABS: CSF White Blood Cells 2 CUMM (0-5)
[2018-10-22] MEDS: ATORVASTATIN 20 MG TAB PO SCH (22:46)
[2018-10-23 05:06] LABS: RPR Non Reactive (Non Reactive)
[2018-10-23] MEDS: LEVOTHYROXINE SODIUM 100 MCG TAB PO SCH (06:39)
--- NOTE | 2018-10-23 07:00 | NUR ---
Endorsed care to Melissa. Patient had 4 loose BM's last night. Ansari removed per orders. Pending tele psych consult today. Sitter at bedside
[2018-10-23 08:00] VITALS: BP 102/79
[2018-10-23] MEDS: Ensure Enlive Strawberry 8oz Bottle PO SCH ×3 (08:00→18:00)
[2018-10-23 09:00] VITALS: BP 102/79
[2018-10-23] MEDS: D5W/SOD CHL 0.45%/KCL 20MEQ 1,000 ML IV SCH (09:50)
[2018-10-23] MEDS: ASPirin 81 mg TAB PO SCH (09:54)
[2018-10-23] MEDS: risperiDONE 1 MG TAB PO SCH (09:54)
[2018-10-23] MEDS: THIAMINE 100mg/ml INJ (200mg/2ml VIAL) IV SCH (09:54)
--- NOTE | 2018-10-23 10:48 | NUR ---
PT Patient refused to be OOB during morning PT visit but agreed to do PT in the afternoon. CAMILA Ponce was notified on the outcome of visit. Addendum: 10/23/18 at 1049 by DALJIT CALZADA PTT Amended: Links added.
--- NOTE | 2018-10-23 10:50 | NUR ---
Discharge planning per consult for SNF placement. Referral faxed to three additional SNF as follows: Claudia at [facility] [phone], [facility] [phone], and [facility] [phone]. Placed follow up calls to the previous three facilities, left messages, awaiting a call back. Addendum: 10/23/18 at 1054 by CELINE BERNARDO Amended: Links added.
--- NOTE | 2018-10-23 12:45 | NUR ---
STRAIGHT CATH PATIENT Performed straight cath per Dr. Velasquez's order. 220 mls dark yellow urine out.
--- NOTE | 2018-10-23 16:01 | NUR ---
TELE PSYCH TELE PSYCH CALLED IN. TELE PSYCH MONITOR JUST BECAME AVAILABLE AND HAS BEEN SET UP IN THE PATIENT ROOM. WAITING FOR RETURN CALL FOR REPORT AND TO BEGIN CONSULT. WILL CONTINUE TO MONITOR.
--- NOTE | 2018-10-23 16:56 | NUR ---
Opening Note Assumed pt care from Rosario. Pt is currently in bed sleeping. Sitter is present in room. No s/s of distress or SOB noted at this time. Awaiting tele psyche call. Also aware of need to place IV; will attempt. Will continue to monitor.
[2018-10-23 17:01] VITALS: BP 104/74
--- NOTE | 2018-10-23 17:19 | NUR ---
IV Insertion 22 G to pt's right wrist was inserted. 2 attempts made. Use clean sterile technique. Pt tolerated well. IV is patent and drill press set up operator radial to fluids. Will continue to monitor.
--- NOTE | 2018-10-23 19:15 | NUR ---
Opening Shift Note Received report from sylvie Valle RN. Assumed care of patient, awake and alert. Sitter at bedside. No S/S of distress/SOB or pain. Instructed on POC and to call for assist PRN, will continue to monitor for changes Q1hr and PRN. Bed placed in lowest position, bed alarm turned on and call light within reach.
[2018-10-23 20:00] VITALS: BP 100/64
[2018-10-23 22:00] VITALS: BP 100/62
--- NOTE | 2018-10-24 03:00 | NUR ---
ROUNDS Assist in repositioning patient to right side. Patient had a small amount of urine incontinence in chucks. Resting in bed with eyes closed, no distress noted.
[2018-10-24] MEDS: D5W/SOD CHL 0.45%/KCL 20MEQ 1,000 ML IV SCH (04:03)
[2018-10-24 05:00] VITALS: BP 102/54
--- NOTE | 2018-10-24 06:11 | NUR ---
ROUNDS Bladder scanner showed 161 ml volume. Patient urinated in tonie times one. Will monitor
[2018-10-24] MEDS: LEVOTHYROXINE SODIUM 100 MCG TAB PO SCH (06:23)
--- NOTE | 2018-10-24 06:57 | NUR ---
ROUNDS PATIENT IS RESTING IN BED WITH EYES CLOSED, NO DISTRESS NOTED.
[2018-10-24] MEDS: Ensure Enlive Strawberry 8oz Bottle PO SCH ×3 (08:00→18:00)
--- NOTE | 2018-10-24 08:35 | NUR ---
Dr. Blanco called. made aware patient in bed, eyes closed, not talking. NO acute distress noted. With pending Tele Psych Consult. Sitter at bedside.
--- NOTE | 2018-10-24 10:12 | NUR ---
PT Patient refused to be OOB during morning PT visit. CAMILA Helton was notified of pt's refusal to be OOB. Addendum: 10/24/18 at 1013 by DALJIT CALZADA PTT Amended: Links added.
--- NOTE | 2018-10-24 10:15 | NUR ---
Patient's sister Joanne ([phone]; Password: "Dillon") called asking for the results of the Lumbar Puncture. Explained to Joanne that results of the Lumbar Puncture has to be discussed by the doctor.
--- NOTE | 2018-10-24 10:34 | NUR ---
Dr. Velasquez came over. ordered to follow up the Tele Psych Consult. Patient's eyes closed, refused to talk.
--- NOTE | 2018-10-24 10:38 | NUR ---
Awake the patient. Patient took Risperidal tablet. Patient asked for orange juice. Sitter at bedside.
[2018-10-24] MEDS: risperiDONE 1 MG TAB PO SCH (10:40)
[2018-10-24] MEDS: THIAMINE 100mg/ml INJ (200mg/2ml VIAL) IV SCH (10:42)
--- NOTE | 2018-10-24 11:14 | NUR ---
Called [phone] for Tele Psych Consult. Spoke with Hector. Hector transferred my call to [facility]. [facility] made aware Tele monitor is already set up in the room facing the patient in bed. Sitter at bedside. [facility] said they will call the patient via Tele monitor.
--- NOTE | 2018-10-24 11:30 | NUR ---
Tele Psych Reproductive Surgeon called back. Tele monitor is already set up facing the patient. Sitter at bedside.
--- NOTE | 2018-10-24 12:12 | NUR ---
Tele Psych Wood Grainer called, she will send the recommendation via Fax later.
--- NOTE | 2018-10-24 12:12 | NUR ---
Patient stared she's in pain, patient baldomeromaggy. Nils 5/ PO given for pain as ordered. Addendum: 10/24/18 at 1223 by Sunitha Kraft RN stated
[2018-10-24] MEDS: HYDROcodone-ACET 5/325MG TAB PO PRN (12:19)
--- NOTE | 2018-10-24 12:20 | NUR ---
Discharge planning per SS consult , patient has orders for SNF placement. Referrals faxed, and [facility] ([phone]) is willing to accept the patient on discharge per Shruti in admissions. [facility] rep Vane ([phone]) was notified of acceptance, and advised they were forwarding the authorization request to their SNF team and would call me back with the auth number. Addendum: 10/24/18 at 1228 by CELINE BERNARDO Amended: Links added.
--- NOTE | 2018-10-24 12:25 | NUR ---
Rommel/DILEEP Moore feeding the patient.
--- NOTE | 2018-10-24 12:49 | NUR ---
Received the Tele Psych Consult recommendation via Fax from Dr. Mitzi Mcdaniel. Copy of the recommendation placed in the patient's chart.
--- NOTE | 2018-10-24 13:40 | NUR ---
Patient walking on the hallway, using FWW, being assisted by Dilan from Physical Therapy.
--- NOTE | 2018-10-24 15:24 | NUR ---
Paged Wire Bound Box Machine Helper Erica.
--- NOTE | 2018-10-24 15:27 | NUR ---
Operations Coordinator Erica called back that there's already a bed available, she's still working on the transportation, she will call me back.
--- NOTE | 2018-10-24 15:48 | NUR ---
Two female friends of patient at bedside. Sitter at bedside.
--- NOTE | 2018-10-24 16:19 | NUR ---
Discharge planning per consult , patient was accepted at [facility] to room [address] Latasha Bahena in admissions. Auth obtained from [facility] for [facility] transportation [id number] per Taya ([phone]). Unable to reach nurse Sunitha but did advised US Laurita to advised that [facility] will be here to coal picker the patient in approximately 30 minutes. Addendum: 10/24/18 at 1653 by CELINE BERNARDO Amended: Links added.
--- NOTE | 2018-10-24 16:55 | NUR ---
Report given to Nurse Davenport at [facility] ([phone]). Address: [address] [place] [id number]. Patient going to Room 103A as per Nurse Davenport.
--- NOTE | 2018-10-24 16:59 | NUR ---
SPOKE WITH PATIENTS SISTER: I SPOKE WITH THE PATIENTS SISTER KAMILA, SHE WAS REQUESTING THE RESULTS OF THE PATIENT LUMBAR PUNCTURE AND MRI THAT SHE HAD DURING THIS STAY. I INFORMED HER THAT THE DOCTOR WOULD HAVE TO BE THE ONE TO REVEAL THESE RESULTS TO HER, DR. GOODWIN PAGED AGAIN TO SPEAK WITH PATIENTS SISTER AWAITING CALL BACK.
--- NOTE | 2018-10-24 17:04 | NUR ---
Called patient's sister Joanne ([phone]). Joanne wants the doctor to call her regarding the patient's Lumbar puncture and MRI results. Explained to Joanne that the results will have to be explained by the doctor. Charge Nurse already paged Dr. Blanco (Neurologist) multiple times to inform the MD to call her back.
--- NOTE | 2018-10-24 17:15 | NUR ---
Called patient's sister Joanne again regarding [facility] address and phone number.
--- NOTE | 2018-10-24 17:25 | NUR ---
Charge Nurse Maribel called Dr. Blanco that patient's sister Joanne ([phone]; Password: "Dillon") is waiting for a call back regarding the Lumbar puncture and MRI results of the patient.
[2018-10-24 17:30] VITALS: BP 95/60
--- NOTE | 2018-10-24 17:40 | NUR ---
Patient's skin is intact, pinkish buttock noted, no open wounds.
--- NOTE | 2018-10-24 18:05 | NUR ---
Discharge instructions given as ordered. Encourage to follow up with PMD as instructed. All questions and concerns addressed. Patient is confused, unable to sign discharge papers, sister Joanne is aware. Medication reconciliation form completed and copy given to [facility] [employer] [facility] personnel. IV removed with catheter intact, pressure dressing applied. Telemetry unit returned to ICU. Patient taken to vehicle via gurney with all personal belongings, accompanied by [facility] [employer] [facility] personnel. No distress noted at time of departure.
== END 2018-10-24 18:05 | DRG 97 ==
LOC: ER 09:20 → TELE 09:21 → OVERFLOW 09:21 → UNDOADMIN 09:21 → TELE-WESTW 21:23
PROVIDERS: ADMIT Internal Medicine; ATTEND Internal Medicine
PROC: 009U3ZX Drainage of Spinal Canal, Percutaneous Approach, Diagnostic (ICD-10-PCS; principal; 2018-10-22)
PROC: B01B1ZZ Fluoroscopy of Spinal Cord using Low Osmolar Contrast (ICD-10-PCS; 2018-10-22)
DX: G04.90 Encephalitis and encephalomyelitis, unspecified (principal); N17.0 Acute kidney failure with tubular necrosis; N39.0 Urinary tract infection, site not specified; E87.2 Acidosis; G92 Toxic encephalopathy; I10 Essential (primary) hypertension; E03.9 Hypothyroidism, unspecified; E66.01 Morbid (severe) obesity due to excess calories; E78.5 Hyperlipidemia, unspecified; F12.90 Cannabis use, unspecified, uncomplicated; F17.200 Nicotine dependence, unspecified, uncomplicated; F32.9 Major depressive disorder, single episode, unspecified; Z79.82 Long term (current) use of aspirin; Z79.899 Other long term (current) drug therapy; Z80.9 Family history of malignant neoplasm, unspecified; Z81.8 Family history of other mental and behavioral disorders; Z90.5 Acquired absence of kidney; Z90.710 Acquired absence of both cervix and uterus; Z91.81 History of falling; Z68.37 Body mass index [BMI] 37.0-37.9, adult; Z90.49 Acquired absence of other specified parts of digestive tract
CPT/HCPCS: 36415; 62272; 70450; 70551; 70553; 71045; 74018; 76775; 80048; 80053; 80061; 80307; 81001; 82042; 82140; 82164; 82533; 82570; 82607; 82784; 82945; 82962; 84156; 84157; 84439; 84443; 84484; 85025; 86592; 86703; 87040; 87070; 87086; 87205; 87529; 87899; 89051; 92507; 92610; 93005; 93306; 93886; 95819; 97110; 97116; 97163; 97530; G0378; J0696